=== PATIENT | male | born 1990 | race Caucasian/White ===

== ENCOUNTER 2020-08-02 00:45 | Inpatient (IN) | payer MEDICAID, SELFPAY ==
[~2020-08-02] VITALS: Ht 177.8 cm; Wt 68.8 kg
[2020-08-02] MEDS ORDERED: KETOROLAC 30 MG/1 ML ONE (01:27)
[2020-08-02] MEDS ORDERED: CEFTRIAXONE 250 MG ONE (01:27)
[2020-08-02] MEDS ORDERED: CEFAZOLIN PMX 1GM/50ML 50 ML ONE (01:28)
[2020-08-02] MEDS ORDERED: AZITHROMYCIN 250 MG TABLET ONE (01:28)
[2020-08-02] MEDS ORDERED: LIDOCAINE-MPF 1%, 2ML ONE ×2 (01:28)
[2020-08-02] MEDS ORDERED: CEFAZOLIN PMX 1GM/50ML 50 ML IV ONE (01:30)
[2020-08-02] MEDS ORDERED: KETOROLAC 30 MG/1 ML IVPush ONE (01:30)
[2020-08-02] MEDS ORDERED: SODIUM CHLORIDE FLUSH 10ML SYR IVF ONE (01:30)
[2020-08-02] MEDS ORDERED: VANCOMYCIN PER PHARMACY MC ONE (01:30)
[2020-08-02] MEDS ORDERED: CEFTRIAXONE 250 MG IM ONE (01:30)
[2020-08-02] MEDS ORDERED: AZITHROMYCIN 500 MG TABLET PO ONE (01:30)
[2020-08-02] MEDS ORDERED: BICILLIN-LA 2,400,000 UNITS/4 ML IM ONE (01:30)
[2020-08-02] MEDS ORDERED: MORPHINE SULFATE 4 MG/ML, 1ML IVPush PRN (01:30)
[2020-08-02] MEDS ORDERED: SODIUM CHLORIDE 0.9% 1,000ML IVBOLUS ONE (01:30)
[2020-08-02] MEDS ORDERED: NEOSPORIN OINT. PKT 1 PACKET ONE (01:36)
[2020-08-02 01:38] LABS: MEAN CORPUSCULAR HEMOGLOBIN 28.7 pg (27.5-34.5); MEAN CORPUSCULAR HGB CONC 32.7 g/dL (33.2-36.2); MEAN PLATELET VOLUME 6.8 fL (7.4-10.4); PLATELET COUNT 570 x10^3/uL (130-400); RED BLOOD COUNT 4.72 x10^6/uL (4.38-5.82); RED CELL DISTRIBUTION WIDTH 14.6 % (9.4-14.8)
[2020-08-02 01:49] LABS: ANION GAP 5 mmol/L (5-15); CHLORIDE 104 mmol/L (98-107); CREATININE 0.95 mg/dL (0.7-1.3)
--- NOTE | 2020-08-02 02:07 | NUR ---
LATE ENTRY DUE TO PATIENT CARE: THIS IS A 30 YO MALE COMING IN FOR REDNESS/SWELLING/PAIN NOTED TO HIS PENIS WITH MALODOROUS DISCHARGE, SYMPTOMS HAVE WORSENED OVER THE PAST MONTH. DIFFUSE BODY RASH NOTED, WELL ON BOTTOM OF FEET. PATIENT STATES HE WAS TREATED FOR SYPHILIS OVER A MONTH AGO, THEN GOT GONORRHEA, AND WAS NOT TREATED FOR THAT YET. RASH ACROSS BODY APPEARS TO BE SECONDARY SYPHILIS RASH. A&OX4, VSS, DISTRESS NOTED DUE TO BURNING IN THE GENITAL REGION. PIV PLACED, LABS DRAWN, BLOOD CULTURES X2 DRAWN PRIOR TO ABX TREATMENT. MEDICATED PER EMAR
[2020-08-02] MEDS ORDERED: MORPHINE SULFATE 4 MG/ML, 1ML ONE (02:12)
[2020-08-02 02:27] LABS: BASOPHILS # (AUTO) 0.06 x10^3/uL (0-0.1); BASOPHILS % (AUTO) 1 % (0-1); EOSINOPHILS # (AUTO) 0.45 x10^3/uL (0-0.4); EOSINOPHILS % (AUTO) 4 % (1-7); LYMPHOCYTES # (AUTO) 1.91 x10^3/uL (1-3.4); LYMPHOCYTES % (AUTO) 16 % (22-44); MD NO; MONOCYTES % (AUTO) 3 % (2-9); NEUTROPHILS # (AUTO) 9.49 x10^3/uL (1.8-6.8); NEUTROPHILS % (AUTO) 77 % (42-75)
[2020-08-02] MEDS ORDERED: VANCOMYCIN PER PHARMACY MC PRN (02:30)
[2020-08-02] MEDS ORDERED: ACETAMINOPHEN 325 MG TABLET PO PRN (02:30)
[2020-08-02] MEDS ORDERED: DOCUSATE 100 MG CAPSULE PO PRN (02:30)
--- NOTE | 2020-08-02 02:54 | NUR ---
REPORT GIVEN TO STEFANIA ESTEVEZ. PLAN OF CARE DISCUSSED. VANCOMYCIN TO BE HUNG PRIOR TO TRANSPORT TO ADMITTING FLOOR. REPORT GIVEN TO STEFANIA RUIZ WHO WILL HANG ABX PRIOR TO TRANSPORT
--- NOTE | 2020-08-02 02:55 | NUR ---
REPORT FROM CONSTANTINO, AWAITING MENDEZ PRIOR TO PT TRANSFER TO FLOOR
[2020-08-02] MEDS ORDERED: VANCOMYCIN 1,700 MG in SODIUM CHLORIDE 0.9% 250 ML IV ONE (03:00)
--- NOTE | 2020-08-02 03:13 | NUR ---
MENDEZ STARTED, PT READY FOR TRANSPORT TO FLOOR AT THIS TIME
[2020-08-02 03:28] VITALS: BP 134/80
[2020-08-02] MEDS ORDERED: PHARMACOKINETIC MONITORING MC PRN (03:30)
[2020-08-02] MEDS: HEPARIN 5,000 UNITS/ML, 1ML SQ SCH ×3 (04:04→19:54)
[2020-08-02 07:16] VITALS: BP 122/76
[2020-08-02] MEDS: NICOTINE 14MG/24 HR PATCH.TD24 TD SCH (09:52)
[2020-08-02] MEDS: NEOSPORIN OINT, 15GM TP SCH ×2 (11:57→19:45)
[2020-08-02 12:10] LABS: MICROSCOPIC NOT IND
[2020-08-02 12:44] LABS: AMPHETAMINE SCREEN, URINE Positive (Negative); BARBITURATE SCREEN, URINE Negative (Negative); BENZODIAZEPINE SCREEN, URINE Negative (Negative); CANNABINOID SCREEN, URINE Positive (Negative); COCAINE SCREEN, URINE Negative (Negative); METHADONE SCREEN, URINE Negative (Negative); OPIATE SCREEN, URINE Positive (Negative)
[2020-08-02 14:45] VITALS: BP 152/89
[2020-08-02] MEDS: VANCOMYCIN 1,350 MG in SODIUM CHLORIDE 0.9% 250 ML IV SCH (15:21)
[2020-08-02 18:30] VITALS: BP 157/84
[2020-08-03 00:35] VITALS: BP 138/91
[2020-08-03] MEDS ORDERED: CEFTRIAXONE PMX 2GM/50ML 50 ML IV SCH (01:30)
[2020-08-03] MEDS: VANCOMYCIN 1,350 MG in SODIUM CHLORIDE 0.9% 250 ML IV SCH (03:29)
[2020-08-03] MEDS: HEPARIN 5,000 UNITS/ML, 1ML SQ SCH ×2 (04:00→12:00)
[2020-08-03 04:52] LABS: BASOPHILS # (AUTO) 0.13 x10^3/uL (0-0.1); BASOPHILS % (AUTO) 2 % (0-1); EOSINOPHILS # (AUTO) 0.47 x10^3/uL (0-0.4); EOSINOPHILS % (AUTO) 5 % (1-7); LYMPHOCYTES # (AUTO) 1.66 x10^3/uL (1-3.4); LYMPHOCYTES % (AUTO) 19 % (22-44); MD NO; MEAN CORPUSCULAR HEMOGLOBIN 28.9 pg (27.5-34.5); MEAN CORPUSCULAR HGB CONC 32.7 g/dL (33.2-36.2); MEAN PLATELET VOLUME 6.6 fL (7.4-10.4); MONOCYTES # (AUTO) 1.32 x10^3/uL (0.2-0.8); MONOCYTES % (AUTO) 15 % (2-9); NEUTROPHILS # (AUTO) 5.42 x10^3/uL (1.8-6.8); NEUTROPHILS % (AUTO) 60 % (42-75); PLATELET COUNT 480 x10^3/uL (130-400); RED BLOOD COUNT 4.68 x10^6/uL (4.38-5.82); RED CELL DISTRIBUTION WIDTH 14.4 % (9.4-14.8)
[2020-08-03 05:10] LABS: ALBUMIN 2.3 g/dL (3.4-5.0); ANION GAP 4 mmol/L (5-15); CALCIUM 8.7 mg/dL (8.5-10.1); CHLORIDE 106 mmol/L (98-107)
[2020-08-03 05:13] LABS: ALANINE AMINOTRANSFERASE 21 U/L (12-78); ALKALINE PHOSPHATASE 70 U/L (45-117); BILIRUBIN,TOTAL 0.2 mg/dL (0.2-1.0); CREATININE 0.66 mg/dL (0.7-1.3); TOTAL PROTEIN 6.9 g/dL (6.4-8.2)
[2020-08-03 07:08] VITALS: BP 167/74
[2020-08-03] MEDS: NEOSPORIN OINT, 15GM TP SCH (09:11)
[2020-08-03] MEDS: NICOTINE 14MG/24 HR PATCH.TD24 TD SCH (09:11)
[2020-08-03] MEDS ORDERED: SULF1TAB24 PO (11:53)
== END 2020-08-03 15:25 | disposition left against medical advice (07) | DRG 728 ==
LOC: ED 01:37 → EDIP 02:06 → 3N 03:30
PROVIDERS: ADMIT Family Medicine; ATTEND Family Medicine
DX: N48.22 Cellulitis of corpus cavernosum and penis (principal); A51.49 Other secondary syphilitic conditions; F15.10 Other stimulant abuse, uncomplicated; Z59.0 Homelessness; F17.210 Nicotine dependence, cigarettes, uncomplicated; Z22.322 Carrier or suspected carrier of Methicillin resistant Staphylococcus aureus; J02.0 Streptococcal pharyngitis; B95.1 Streptococcus, group B, as the cause of diseases classified elsewhere; F12.10 Cannabis abuse, uncomplicated; A56.01 Chlamydial cystitis and urethritis
CPT/HCPCS: 36415; 80048; 80053; 80307; 81003; 82040; 83605; 84145; 85025; 86592; 86705; 86706; 86780; 86803; 87040; 87081; 87147; 87340; 87491; 87591; 87806; 87880; 96372; G0378; J0561; J0690; J0696; J1644; J1885; J3370; G0475; J2270; J7030; J7050